=== PATIENT | female | born 1965 | race Two or more races ===

== ENCOUNTER 2016-10-01 08:26 | Emergency (ER) | payer OTHER ==
[~2016-10-01] VITALS: Ht 160 cm; Wt 59.0 kg
--- NOTE | 2016-10-01 09:37 | PHYS DOC ---
Past History Past Medical History: No Pertinent History Past Surgical History: Cholecystectomy, Tubal ligation, Other Alcohol Use: None Drug Use: None Adult General Chief Complaint Chief Complaint: LACERATION/AVULSION HPI HPI This 51-year-old lady presents with a history of having slipped and fallen and struck her head several small superficial laceration of her scalp. Today she also has pain in her neck she presents now for evaluation Review of Systems Review of Systems Constitutional: Denies fever or chills [] Eyes: Denies change in visual acuity, redness, or eye pain [] HENT: Denies nasal congestion or sore throat [] Respiratory: Denies cough or shortness of breath [] Cardiovascular: No additional information not addressed in HPI [] GI: Denies abdominal pain, nausea, vomiting, bloody stools or diarrhea [] : Denies dysuria or hematuria [] Musculoskeletal: Denies back pain or joint pain [] Integument: Denies rash or skin lesions [] Neurologic: Denies headache, focal weakness or sensory changes [] Endocrine: Denies polyuria or polydipsia [] Physical Exam Physical Exam Constitutional: Well developed, well nourished, no acute distress, non-toxic appearance. [] HENT: Normocephalic, atraumatic, bilateral external ears normal, oropharynx moist, no oral exudates, nose normal. [] Eyes: PERRLA, EOMI, conjunctiva normal, no discharge. [] Neck: Normal range of motion, she has mild paravertebral musculature tenderness especially on the left, supple, no stridor. [] Cardiovascular:Heart rate regular rhythm, no murmur [] Lungs & Thorax: Bilateral breath sounds clear to auscultation [] Abdomen: Bowel sounds normal, soft, no tenderness, no masses, no pulsatile masses. [] Skin: Warm, dry, no erythema, no rash. On the scalp there is a small 1 cm laceration which is crusted over] Back: No tenderness, no CVA tenderness. [] Extremities: No tenderness, no cyanosis, no clubbing, ROM intact, no edema. [] Neurologic: Alert and oriented X 3, normal motor function, normal sensory function, no focal deficits noted. [] Psychologic: Affect normal, judgement normal, mood normal. [] Current Patient Data Vital Signs Vital Signs Date Time Temp Pulse Resp B/P (MAP) Pulse Ox O2 Delivery O2 Flow Rate FiO2 10/01/16 08:57 98.0 72 18 99 Room Air EKG EKG [] Radiology/Procedures Radiology/Procedures [] Impressions: Superficial scalp laceration Cervical strain Course & Med Decision Making Course & Med Decision Making Pertinent Labs and Imaging studies reviewed. (See chart for details) [] Dragon Disclaimer Dragon Disclaimer This chart was dictated in whole or in part using Voice Recognition software in a busy, high-work load, and often noisy Emergency Department environment. It may contain unintended and wholly unrecognized errors or omissions. Departure Departure: Disposition: 01 HOME, SELF-CARE Condition: STABLE Referrals: AMAURI ALVARADO (PCP) CAROLYN LOPEZ MD October 01, 2016 09:37
[2016-10-01 09:59] VITALS: BP 124/64
== END 2016-10-01 10:00 | disposition home or self-care (01) ==
LOC: ER 08:26
DX: S01.01XA Laceration without foreign body of scalp, initial encounter (principal); S16.1XXA Strain of muscle, fascia and tendon at neck level, initial encounter; W01.198A Fall on same level from slipping, tripping and stumbling with subsequent striking against other object, initial encounter; Y93.89 Activity, other specified; Y99.8 Other external cause status; Y92.89 Other specified places as the place of occurrence of the external cause
CPT/HCPCS: 99281

== ENCOUNTER 2017-02-10 19:12 | Emergency (ER) | payer OTHER ==
[~2017-02-10] VITALS: Ht 160 cm; Wt 61.2 kg
[2017-02-10] MEDS ORDERED: NEBI10TA3 PO (19:24)
[2017-02-10] MEDS ORDERED: RAMI10CA34 PO (19:24)
[2017-02-10] MEDS ORDERED: IV NORMAL SALINE 1,000ML 1,000 ML IV ONE (19:30)
[2017-02-10] MEDS ORDERED: ONDANSETRON PF 4 MG/2 ML VIAL. IV ONE (19:30)
--- NOTE | 2017-02-10 19:38 | PHYS DOC ---
Past History Past Medical History: Hypertension, Migraines Past Surgical History: Other Alcohol Use: None Drug Use: None Adult General Chief Complaint Chief Complaint: HEADACHE HPI HPI Patient is a 51 year old female who presents with migraine headache. She states she has a history of migraine she's loaded his Imitrex and [place] Today the bases close. She states her symptoms started on Saturday started over her left eye and then Saturday morning around 3 AM they came back she did Imitrex at 6:00 and then 7:30 and her symptoms were away and now they' ve returned yet again. She states she feels nauseated. She denies any fevers chills and neck pain. She is nauseated and vomited a few times. She states she' s been trying to keep fluids down today. He states usually gets a Toradol shot. She did take a gram of Tylenol prior to arrival. Review of Systems Review of Systems Constitutional: Denies fever or chills [] Eyes: Denies change in visual acuity, redness, or eye pain [] HENT: Denies nasal congestion or sore throat [] Respiratory: Denies cough or shortness of breath [] Cardiovascular: No additional information not addressed in HPI [] GI: Denies abdominal pain, nausea, vomiting, bloody stools or diarrhea [] : Denies dysuria or hematuria [] Musculoskeletal: Denies back pain or joint pain [] Integument: Denies rash or skin lesions [] Neurologic: Denies headache, focal weakness or sensory changes [] Endocrine: Denies polyuria or polydipsia [] Current Medications Current Medications Current Medications Medications (Trade) Dose Ordered Sig/[facility] Start Time Stop Time Status Last Admin Dose Admin Ondansetron HCl (Zofran) 4 mg 1X ONCE 02/10/17 19:30 02/10/17 19:34 DC Sodium Chloride 1,000 ml @ 1,000 mls/hr 1X ONCE 02/10/17 19:30 02/10/17 20:29 Allergies Allergies Allergies Coded Allergies Type Severity Reaction Last Updated Verified Iodine and Iodide Containing Produc Allergy Unknown Hives 02/10/17 Yes codeine Adverse Reaction Unknown Nausea and Vomiting 02/10/17 Yes Physical Exam Physical Exam Constitutional: Well developed, well nourished, no acute distress, non-toxic appearance. [] HENT: Normocephalic, atraumatic, bilateral external ears normal, oropharynx moist, no oral exudates, nose normal. [] Eyes: PERRLA, EOMI, conjunctiva normal, no discharge. [] Neck: Normal range of motion, no tenderness, supple, no stridor. [] Cardiovascular:Heart rate regular rhythm, no murmur [] Lungs & Thorax: Bilateral breath sounds clear to auscultation [] Abdomen: Bowel sounds normal, soft, no tenderness, no masses, no pulsatile masses. [] Skin: Warm, dry, no erythema, no rash. [] Back: No tenderness, no CVA tenderness. [] Extremities: No tenderness, no cyanosis, no clubbing, ROM intact, no edema. [] Neurologic: Alert and oriented X 3, normal motor function, normal sensory function, no focal deficits noted. [] Psychologic: Affect normal, judgement normal, mood normal. [] Current Patient Data Vital Signs Vital Signs Date Time Temp Pulse Resp B/P (MAP) Pulse Ox O2 Delivery O2 Flow Rate FiO2 02/10/17 19:24 98.2 62 16 100 Room Air EKG EKG [] Radiology/Procedures Radiology/[place] [address] IMAGING REPORT Signed PATIENT: JASON MURPHY ACCOUNT: [id number] : 1965 LOCATION: ER AGE: 51 SEX: F EXAM STATUS: REG ER ORD. PHYSICIAN: CR MISHRA MD REASON: headache PROCEDURE: CT HEAD WO CONTRAST EXAM: CT head without contrast HISTORY: CT Head for headache, pt is light sensitive, has history of frequent headaches COMPARISON: None. TECHNIQUE: Computed tomographic images of the head were obtained without contrast. PQRS compliance statement: One or more of the following individualized dose reduction techniques were utilized for this examination: 1. Automated exposure control 2. Adjustment of the mA and/or kV according to patient size 3. Use of iterative reconstruction technique FINDINGS: There is no acute intracranial process identified. Specifically, there are no intracranial blood products, extra-axial fluid collections, mass effect or midline shift. Ventricles and basilar cisterns are maintained. The visualized portions of the orbits, paranasal sinuses and mastoid air cells are unremarkable. No suspicious calvarial lesion is seen. IMPRESSION: No acute intracranial findings. Electronically signed by: Jaxon Roy MD (02/10/2017 8:11 PM) [facility] DICTATED AND SIGNED BY: JAXON ROY MD DATE: 02/10/172008 CC: AMAURI ALVARADO; CR MISHRA MD ~ Course & Med Decision Making Course & Med Decision Making Pertinent Labs and Imaging studies reviewed. (See chart for details) [] Dragon Disclaimer Dragon Disclaimer This chart was dictated in whole or in part using Voice Recognition software in a busy, high-work load, and often noisy Emergency Department environment. It may contain unintended and wholly unrecognized errors or omissions. Departure Departure: Impression: Primary Impression: Headache Referrals: AMAURI ALVARADO (PCP) LULU SHORE MD Patient Instructions: Migraine Headache Additional Instructions: The CAT scan of your head did not show any acute abnormality's. You received IV fluids and Zofran and 30 mg of IV Toradol. Your headache has improved and your requesting to be discharged home. We were unable to obtain a urine supple from you. If you develop fever, dysuria, abdominal pain return back to the ER. Your can take [id number] Benadryl for your nausea and headache and see if this will help in addition to 600 mg of ibuprofen every 8 hours. Do not take this high dose of ibuprofen within 2 days. If you develop high fevers, neck stiffness , confusion or other concerns please return back to ER. You should follow-up with your primary care physician and a neurologist if your headaches get worse or less control. Problem Qualifiers Primary Impression: Headache Headache type: unspecified Headache chronicity pattern: acute headache Intractability: not intractable Qualified Codes: R51 - Headache CR MISHRA MD Feb 10, 2017 19:38
--- NOTE | 2017-02-10 20:14 | RAD ---
EXAM: CT head without contrast HISTORY: CT Head for headache, pt is light sensitive, has history of frequent headaches COMPARISON: None. TECHNIQUE: Computed tomographic images of the head were obtained without contrast. RS compliance statement: One or more of the following individualized dose reduction techniques were utilized for this examination: 1. Automated exposure control 2. Adjustment of the mA and/or kV according to patient size 3. Use of iterative reconstruction technique FINDINGS: There is no acute intracranial process identified. Specifically, there are no intracranial blood products, extra-axial fluid collections, mass effect or midline shift. Ventricles and basilar cisterns are maintained. The visualized portions of the orbits, paranasal sinuses and mastoid air cells are unremarkable. No suspicious calvarial lesion is seen. IMPRESSION: No acute intracranial findings. Electronically signed by: Dennise Roy MD (02/10/2017 8:11 PM) [facility]
[2017-02-10] MEDS ORDERED: KETOROLAC 30 MG/ML VIAL. IV ONE (20:30)
[2017-02-10 21:38] VITALS: BP 147/80
[2017-02-10] MEDS ORDERED: SUMA6PEN SQ (21:55)
== END 2017-02-10 21:38 | disposition home or self-care (01) ==
LOC: ER 19:12
DX: R51 Headache (principal); G43.909 Migraine, unspecified, not intractable, without status migrainosus; I10 Essential (primary) hypertension; Z88.5 Allergy status to narcotic agent; Z91.041 Radiographic dye allergy status
CPT/HCPCS: 70450; 96361; 96374; 96375; 99284; J1885; J2405; J7030